=== PATIENT | female | born 1955 | race Caucasian/White ===

== ENCOUNTER → 2017-02-19 | Outpatient (CLI) | payer OTHER ==
--- NOTE | 2017-02-20 10:46 | RADRPT ---
PROCEDURE: XR pelvis/right hip. CLINICAL INDICATION: Hip pain TECHNIQUE: AP pelvis/lateral right hip view performed COMPARISON: No prior studies are available for comparison. FINDINGS: There is mild bilateral hip osteoarthrosis. This is associated with joint space narrowing, subchondr al sclerosis and osteophytosis. There is normal mineralization. No fractures or osseous lesions ar e identified. The soft tissues are unremarkable. IMPRESSION: Mild bilateral hip osteoarthrosis. RPTAT: [facility] .Mynor Miranda MD, MD Date Time Electronically viewed and signed by .Mynor Miranda MD, on 02/20/2017 10:45 .B/
--- NOTE | 2017-02-23 01:22 | HKNOTE ---
DATE OF SERVICE: 02/19/2017 REFERRING PHYSICIAN: Jana Gee NP MAIN COMPLAINT: Pain in the right hip. HISTORY OF MAIN COMPLAINT: The patient is a 61-year-old female who complains of pain in the right h ip. The pain has been present for about a year. There has not been any history of injury. The pat melinda has a history of problems with her lower back. she has had 1 lumbar epidural cortisone injecti on in the past. she was seen by Ms. Cata NP, who obtained an MRI scan of the hip and then referred her to me for further evaluation and treatment. The patient was put on Naprosyn 500 mg p.o. b.i.d., which helps somewhat but not sufficiently. PRESENT COMPLAINTS: The pain in the right hip is localized over the right greater trochanter with s ome minimal radiation to the right groin. Pain is aggravated by walking, stair climbing and any att empt at running. she is not able to sleep on her right side. she does get night pain. she can eas lilly walk 2 miles without stopping. she does not currently have any back pain. No numbness or tingl ing in her legs. she does not use a walking aid. she limps all the time. she does not have a shoe lift. she can clip her toenails and tie her shoelaces. PAST ORTHOPEDIC HISTORY: Previous orthopedic operations none. ALCOHOL INTAKE: None. PRIOR CORTISONE INTAKE: None. OTHER JOINT PROBLEMS: None. BLOOD TESTS FOR ARTHRITIS: None. WORK STATUS: Currently unemployed. PAST MEDICAL HISTORY: Hypertension. PAST SURGICAL HISTORY: No previous surgeries. ALLERGIES: 1. BACTRIM. 2. ANY SULFA CONTAINING DRUGS. MEDICATIONS: 1. Amlodipine 5 mg daily for hypertension. 2. Aspirin 81 mg daily. 3. Naproxen 500 mg twice a day. FAMILY HISTORY: Father of diabetes. Mother of cancer. SYSTEMS REVIEW: Prone to dizzy spells. Age-related failing vision. Gait disturbance due to her hi p pain. Hypertension, otherwise negative. HABITS: The patient does not smoke or drink alcoholic beverages. PHYSICAL EXAMINATION: GENERAL: An extremely fit looking and youthful 61-year-old female. VITAL SIGNS: Height 5 feet 5 inches, weight 158 pounds, blood pressure 145/70, temperature 98.2. GAIT: The patient's gait is mildly antalgic. she walks without a walking aid. NEUROLOGIC: Motor examination reveals no muscle deficit in the lower extremities. Deep tendon refle xes in the lower extremities: Right knee jerk plus, left knee jerk plus, right ankle jerk plus, lef t ankle jerk plus. Straight leg raising is negative bilaterally at 80 degrees. Lasegue and ELVIA robin ts are negative. RIGHT HIP: Flexion to 95 degrees, external rotation 40 degrees, internal rotation 0 degrees, abduct ion 35 degrees, adduction 20. 4+ groin pain at the limits of motion. Mild tenderness over the righ t greater trochanter. LEFT HIP: Full range of motion without pain. RIGHT KNEE: The right knee shows normal alignment. Active and passive extension is 0 degrees. Activ e and passive flexion is 135 degrees. The medial and lateral collateral ligaments and cruciate ligam ents are intact. Hipolito test is negative. There is no effusion, tenderness, scarring, crepitus, or cysts. The patella tracks normally. There is no tenderness on the articular surface of the patella o r in the patellar groove. The Q angle is normal. LEFT KNEE: The left knee shows normal alignment. Active and passive extension is 0 degrees. Active and passive flexion is 135 degrees. The medial and lateral collateral ligaments and cruciate ligamen ts are intact. Hipolito test is negative. There is no effusion, tenderness, scarring, crepitus, or cy sts. The patella tracks normally. There is no tenderness on the articular surface of the patella or in the patellar groove. The Q angle is normal. IMAGING: Plain x-rays of the pelvis and hip obtained today at the [facility] wer e reviewed. The right femoral head is normal and has a normal outline. The hip joint space is well maintained. No osteophytes, no evidence of avascular necrosis, no subchondral sclerosis or intraos seous cysts. The left hip seen on these x-rays appear to be completely normal. An MRI scan of the hips obtained on 01/05/[address] Deni Ferris as showing "mild bilat eral osteoarthritis of both hips with mild cartilage thinning along the anterior column of both acet abulum with mild subchondral stress response. No joint effusion or loose bodies. No labral tear. Mild trochanteric bursitis. Mild peritendinitis of the gluteus minimus." Under sterile conditions, the right hip was injected with 3 mL of 2% lidocaine. After 5 minutes, th e right hip had a full range of motion without any pain whatsoever and she was able to walk around n ormally. DIAGNOSES: 1. Mild arthritis of both hips, markedly symptomatic on the right side. 2. Hypertension. 3. ALLERGIC TO SULFA DRUGS. DISCUSSION: The patient has remarkable limitation of motion in the right hip considering the paucit y of radiological findings. Absent the MRI, I would not have made an imaging diagnosis of arthritis . However, the patient response to the intra-articular injection of local anesthetic certainly support s the diagnosis. Note that Mrs. Gordillo does not speak [place] and the entire evaluation and interaction with her was th rough a fluent machine specialist. I recommended that the anesthetic injection be followed with a cortisone injection. The patient was very much opposed to cortisone, but after a long discussion with her through the small arms repairer she ag olivia. The already anesthetized right hip was now injected with 80 mg of Kenalog. The patient left the office completely free of pain. she is advised that she can return for further cortisone injections if needed, not more frequently than every 3 months. Note that before injecting her hip with cortisone, the possible complications were discussed with he r in a fair amount of detail. FINAL DIAGNOSES: 1. Mild arthritis of both hips, markedly symptomatic on the right side. 2. Hypertension. 3. ALLERGIC TO SULFA DRUGS. The patient is advised that she will eventually need to have a hip replacement operation. She will be seen again as necessary. e Dictated By: ALINA LEARY/ROHAN Conf#: [id number] DID#: [id number] CC: JANA GEE ALBERENE STONE SETTER;*End*
== END | disposition home or self-care (01) ==
LOC: HKI 14:29
DX: M16.0 Bilateral primary osteoarthritis of hip (principal); I10 Essential (primary) hypertension; Z88.2 Allergy status to sulfonamides; Z79.82 Long term (current) use of aspirin
CPT/HCPCS: 20610; 73502; Z7500; Z7610; G0463

== ENCOUNTER 2017-09-15 10:50 | Emergency (ER) | END 2017-09-15 14:02 | disposition home or self-care (01) ==

== ENCOUNTER 2018-03-04 05:42 | Inpatient (IN) | END 2018-03-06 16:40 | disposition home or self-care (01) | DRG 743 ==

== ENCOUNTER 2018-08-13 09:43 | Day surgery (SDC) | END 2018-08-13 14:11 | disposition home or self-care (01) ==